=== PATIENT | female | born 1990 | race Caucasian/White ===

== ENCOUNTER → 2019-05-18 16:44 | Outpatient (BNVA) | payer BC, SELFPAY | PROVIDERS: PCP Specialist; Referring Provider Nurse Practitioner; Visit Provider Specialist | DX: S99.912A Unspecified injury of left ankle, initial encounter (principal); X58.XXXA Exposure to other specified factors, initial encounter | CPT/HCPCS: 73610 ==

== ENCOUNTER → 2019-06-08 11:52 | Outpatient (BNVA) | payer BC, SELFPAY | PROVIDERS: PCP Specialist; Visit Provider Specialist | DX: S89.92XA Unspecified injury of left lower leg, initial encounter (principal); X58.XXXA Exposure to other specified factors, initial encounter; M77.32 Calcaneal spur, left foot | CPT/HCPCS: 73610 ==

== ENCOUNTER 2019-11-06 16:50 | Outpatient (CLI) | payer BC, SELFPAY ==
[2019-11-06 17:22] LABS: Basophils % 0.5 %; Eosinophils # 0.1 10^3/uL (0.0-0.8); Eosinophils % 1.3 %; Hematocrit 40.2 % (37.0-47.0); Hemoglobin 13.1 g/dL (11.5-15.3); Lymphocytes # 2.8 10^3/uL (0.8-4.8); Lymphocytes % 37.2 %; Mean Corpuscular HGB Conc 32.6 g/dL (30.0-36.0); Mean Corpuscular Hemoglobin 30.1 pg (28.0-34.0); Mean Corpuscular Volume 92.4 fL (81-99); Mean Platelet Volume 11.2 fL (7.4-10.4); Monocytes # 0.5 10^3/uL (0.2-0.9); Monocytes % 6.5 %; Neutrophils # 3.9 10^3/uL (1.8-7.7); Neutrophils % 53.2 %; Nucleated Red Blood Cells % 0 %; Platelet Count 376 10^3/cmm (130-400); Red Blood Count 4.35 10^6/uL (4.1-5.3); Red Cell Distribution Width 13.1 % (12.1-15.1); White Blood Count 7.4 10^3/uL (4.0-10.0)
[2019-11-06 18:38] LABS: Alanine Aminotransferase 117 U/L (0-33); Albumin Level 4.7 g/dL (3.5-5.2); Alkaline Phosphatase 100 IU/L (35-105); Aspartate Amino Transferase 92 U/L (0-32); Blood Urea Nitrogen 14 mg/dL (6-20); Calcium 9.9 mg/dL (8.5-10.5); Carbon Dioxide 25 mmol/L (22-29); Chloride 99 mmol/L (98-107); Globulin 2.3 g/dL (1.3-4.6); Glomerular Filtration Rate 118.2 mL/min (90-130); Glucose 68 mg/dL (65-115); Osmolality Calculated 277 mOsm/kg (285-295); Sodium 136 mmol/L (136-145); Thyroid Stimulating Hormone 1.74 uIU/mL (0.27-4.20); Total Bilirubin 0.2 mg/dL (0.15-1.2)
== END 2019-11-06 16:51 | disposition home or self-care (01) ==
LOC: LAB 16:53
PROVIDERS: PCP Specialist; Visit Provider Nurse Practitioner Family
DX: F43.21 Adjustment disorder with depressed mood (principal)
CPT/HCPCS: 80053; 84443; 85025

== ENCOUNTER 2020-07-07 10:20 | Outpatient (CLI) | payer BC, SELFPAY ==
--- NOTE | 2020-07-07 10:23 | MM_ITS ---
WS: [id number] DIAGNOSTIC LEFT DIGITAL MAMMOGRAM WITH CAD HISTORY: LEFT BREAST LUMP 9 o'clock, 29-year-old. COMPARISON: None available. Technique: CC, MLO and ML views. Spot compression LEFT CC. Breast composition: There are scattered areas of fibroglandular density. No abnormality noted within the LEFT breast. No soft tissue mass or distortion at 9:00 in the area of clinical concern. LEFT breast ultrasound, limited. Ultrasound is negative for suspicious mass or shadowing in the medial LEFT breast at 9:00. MM/[id number] IMPRESSION: BI-RADS: 1-Negative FOLLOW UP: See Report No additional radiographic follow-up for the LEFT breast abnormality. There is no abnormal imaging finding.
== END 2020-07-07 10:21 | disposition home or self-care (01) ==
LOC: RADSHAW 10:22
PROVIDERS: PCP Nurse Practitioner Family; Visit Provider Nurse Practitioner Family
DX: N63.25 Unspecified lump in the left breast, overlapping quadrants (principal)
CPT/HCPCS: 76642; 77065

== ENCOUNTER → 2020-08-30 14:45 | Outpatient (BNVA) | payer BC, SELFPAY | PROVIDERS: PCP Nurse Practitioner Family; Visit Provider Nurse Practitioner Women's Health | DX: Z01.419 Encounter for gynecological examination (general) (routine) without abnormal findings (principal); Z30.011 Encounter for initial prescription of contraceptive pills; E28.2 Polycystic ovarian syndrome; L73.2 Hidradenitis suppurativa | CPT/HCPCS: 88175 ==

== ENCOUNTER → 2020-09-06 10:36 | Outpatient (BNVA) | payer BC, SELFPAY | PROVIDERS: PCP Nurse Practitioner Family; Visit Provider Nurse Practitioner | DX: M25.561 Pain in right knee (principal) | CPT/HCPCS: 73562 ==

== ENCOUNTER 2021-07-24 12:41 | Emergency (ER) | payer OTHER, SELFPAY ==
[2021-07-24 13:00] VITALS: BP 163/122; PULSE 78; RESP 18; TEMP 37.2; O2SAT 97; BMI 45.3
--- NOTE | 2021-07-24 13:13 | ED_ITS ---
HPI - General Adult General: Chief complaint: General Medical Stated complaint: high bp Time Seen by Provider: 07/24/21 13:07 History of Present Illness: Patient is a 30-year-old female with history of hypertension on metoprolol 50 mg twice daily, diabetes who presents the emergency room for evaluation of elevated blood pressure. Patient tells me that since yesterday, patient has noticed blood pressure elevation. At home, patient had a blood pressure 155/100. Patient also reports 2 weeks of headache with nausea and vomiting today and vertigo-like symptoms x1 day. Patient denies any focal neurological weakness, fever/chills, cough, runny nose, sore throat, patient denies any ear pain, facial droop, slurring of speech, abdominal pain, diarrhea, melena/hematochezia. Patient takes his medicine compliantly. Onset: 1 day of elevated BP, 2 weeks of headache, 1 day N/V Duration:one day Location:home Severity: moderate Associated symptoms: Reports headache(s), nausea and vomiting; Deny chest pain, dyspnea, rash or palpitations Review of Systems Const: Denies: fever(s) or chills Eyes: Denies: change in vision ENMT: Denies: mouth pain Card: Denies: chest pain or palpitations Resp: Denies: dyspnea or non-productive cough GI: Reports: nausea and vomiting; Denies: abdominal pain or diarrhea : Denies: dysuria Musc: Denies: extremity pain Skin/Breast: Denies: rash or new lesions Neuro: Reports: headache(s); Denies: weakness in extremities Psych: Reports: other (Normal mood) Blane/Lymph: Denies: easy bruising PFSH ED PFSH: Medical History Anxiety and depression Fatty liver Fracture of distal fibula Hypertension No pertinent past medical history neghx: dm,thyroid,dvt/pe,migraines. 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 Polycystic ovarian disease Renal calculus, bilateral Surgical History Hx of section (~2013) Emergency due to NRFHR; [place] Family History Mother Hypertension Hyperlipidemia Father Hypertension Hyperlipidemia Grandmother Cancer CAD (coronary artery disease) Heart attack Grandfather Diabetes Denies family history of Clotting disorder Dementia Psychiatric illness Chronic kidney disease (CKD) Suicide Anesthesia complication Bleeding disorder Family history of premature coronary artery disease Lung disease Stroke Social History Smoking and tobacco status: current some day smoker Marital status: Physical Exam Const: COMMON NORMALS: alert HENMT: COMMON NORMALS: atraumatic HEAD & SCALP: atraumatic MOUTH: moist mucous membranes not abnormal Eye: COMMON NORMALS: EOMs intact bilaterally and conjunctivae normal CONJUNCTIVA: Yes conjunctivae normal Neck/C-Spine: COMMON NORMALS: full ROM and supple OTHER: +no mengismus or nuchal rigidity Resp: COMMON NORMALS: normal respiratory effort and clear to auscultation bilaterally AUSCULTATION: clear to auscultation bilaterally Cardio: COMMON NORMALS: regular rate RATE: regular rate GI: COMMON NORMALS: Soft to palpation and non-tender PALPATION: Yes Soft to palpation Extremity: COMMON NORMALS: full ROM Neuro: SENSORIUM/ORIENTATION: Yes alert MOTOR EXAM: No Abnormal motor strength present and Other motor observations present (no focal motor deficits) OTHER: Mental status? Awake, alert, and oriented to self, year, month, location, and situation.? Following simple axial and appendicular commands.? Has appropriate fund of knowledge, comprehension, and insight.? Able to recall and understands pertinent aspects of medical history and current treatment status.? ? Language? Speech is fluent without word-finding difficulties.? Intact naming, expression, hospital receptionist, and repetition.? ? Cranial nerves? 2,3,4,6: PERRL, EOMI with no nystagmus. 5: Intact sensation to light touch, symmetric? 7: Smile symmetrical, no facial droop.? 8: Hearing grossly intact.? 9,10: Normal palate movement.? 11: Normal strength in trapezius bilaterally 12: Tongue protrudes midline.? ? Motor examination? Normal bulk & tone. Strength as follows (R/L): Delts (5/5), Biceps (5/5), Triceps (5/5), Wrist ext (5/5), hip flexors (5/5), plantarflexors (5/5), dorsiflexors (5/5). ? Sensation? Light Touch: Grossly intact and equal in upper and lower extremities bilaterally? Romberg: Negative.? Distal joint position sense intact ? Coordination? [id number]-finger movements intact without dysmetria or past-pointing.? Rapid fingertaps: preserved amplitude without decriment.? No tremor, myoclonus or truncal ataxia.? ? Gait/stance? Steady, normal narrow base gait with appropriate arm swing and turning.? Tandem gait without hesitation or loss of balance. Psych: COMMON NORMALS: speech normal SPEECH: Yes normal speech MOOD & AFFECT: Yes euthymic mood Course Vital Signs: Vital signs: Vital Signs Temperature 98.9 F 07/24/21 13:00 Pulse Rate 63 07/24/21 14:39 Respiratory Rate 18 07/24/21 14:39 Blood Pressure 125/87 07/24/21 14:39 Pulse Oximetry 97 07/24/21 14:39 MDM - General Adult Medical Decision Making 30-year-old female presents emergency room for evaluation 2 weeks headache, nausea and vomiting x1 day in the setting of elevated blood pressure. Patient had a blood pressure 160/120 in the emergency room. Neuro exam is intact. Rest of physical exam within normal limit. Patient received IVF, Reglan and Tylenol with significant improvement headache and nausea. Patient has not had any episodes of vomiting the emergency room. Patient received amlodipine 5 mg improvement in blood pressure. At the present time, do not suspect the patient has subarachnoid hemorrhage or any intracranial bleed given the fact that patient has had a for 2 weeks, headache is not sudden onset, no family history of aneurysm, and patient has significant improvement in headache. I have discussed this findings with patient and informed her that her risks is fairly low for SAH or brain bleed. Upon hearing that, patient is legs to not undergo CT and CT evaluation today. Patient tells me that she will foll ow-up closely with her primary care provider for further evaluation of her symptoms. Patient is given strict precaution for any worsening pelvic, intractable nausea or vomiting, focal neurological complaints or any new or concerning complaints. I have given patient follow up with our catalytic case operator to be seen by our PCP for reassessment of symptoms. Patient aware of a call from our catalytic case operator to schedule for appointment(s) and verbalizes understanding of the importance of following up. Rx amlodipine 5mg for elevated BP Disposition: Discharge. Patient counseled regarding diagnostic impression, treatment plan. Patient given ED strict return precautions to return for continuation, worsening, or development of new symptoms. Instructed to f/u w/ PCP regarding symptoms today. Patient verbalized understanding. Lab Data : 07/24/21 13:35 07/24/21 13:35 Laboratory Results WBC 9.0 10^3/uL (4.0-10.0) 07/24/21 13:35 RBC 4.93 10^6/uL (4.1-5.3) 07/24/21 13:35 Hgb 14.4 g/dL (11.5-15.3) 07/24/21 13:35 Hct 43.0 % (37.0-47.0) 07/24/21 13:35 MCV 87.2 fl (81-99) 07/24/21 13:35 MCH 29.2 pg (28.0-34.0) 07/24/21 13:35 MCHC 33.5 g/dL (30.0-36.0) 07/24/21 13:35 RDW 12.8 % (12.1-15.1) 07/24/21 13:35 Plt Count 417 10^3/cmm (130-400) H 07/24/21 13:35 MPV 10.2 fL (7.4-10.4) 07/24/21 13:35 Neut % (Auto) 54.0 % 07/24/21 13:35 Lymph % (Auto) 39.0 % 07/24/21 13:35 [place] % (Auto) 5.1 % 07/24/21 13:35 Eos % (Auto) 0.7 % 07/24/21 13:35 Baso % (Auto) 0.6 % 07/24/21 13:35 Neut # (Auto) 4.85 10^3/uL (1.8-7.7) 07/24/21 13:35 Lymph # (Auto) 3.5 10^3/uL (0.8-4.8) 07/24/21 13:35 [place] # (Auto) 0.5 10^3/uL (0.2-0.9) 07/24/21 13:35 Eos # (Auto) 0.1 10^3/uL (0.0-0.8) 07/24/21 13:35 Baso # (Auto) 0.1 10^3/uL (0.0-0.1) 07/24/21 13:35 Nucleated RBC % (auto) 0 % 07/24/21 13:35 Nucleated RBCs # 0.0 /100WBC 07/24/21 13:35 Sodium 140 mmol/L (136-145) 07/24/21 13:35 Potassium 4.1 mmol/L (3.5-5.1) 07/24/21 13:35 Chloride 102 mmol/L (98-107) 07/24/21 13:35 Carbon Dioxide 27 mmol/L (22-29) 07/24/21 13:35 Anion Gap 15.1 (5-19) 07/24/21 13:35 BUN 11 mg/dL (6-20) 07/24/21 13:35 Creatinine 0.7 mg/dL (0.5-0.9) 07/24/21 13:35 GFR Calculation 98.3 mL/min (90-130) 07/24/21 13:35 Glucose 122 mg/dL (65-115) H 07/24/21 13:35 Calculated Osmolality 291 mOsm/kg (285-295) 07/24/21 13:35 Calcium 9.7 mg/dL (8.5-10.5) 07/24/21 13:35 Total Bilirubin 0.3 mg/dL (0.15-1.2) 07/24/21 13:35 AST 52 U/L (0-32) H 07/24/21 13:35 ALT 94 U/L (0-33) H 07/24/21 13:35 Alkaline Phosphatase 102 IU/L (35-105) 07/24/21 13:35 Total Protein 8.5 g/dL (6.6-8.7) 07/24/21 13:35 Albumin 5.4 g/dL (3.5-5.2) H 07/24/21 13:35 Globulin 3.1 g/dL (1.3-4.6) 07/24/21 13:35 Lipase 36 U/L (13-60) 07/24/21 13:35 HCG, Qual Negative (Negative) 07/24/21 13:35 Discharge Plan Discharge Patient Disposition: Home Clinical Impression: Headache, Hypertension Condition: Stable Prescriptions: New amlodipine 5 mg tablet 5 mg PO DAILY 14 Days Qty: 14 0RF acetaminophen 500 mg tablet 500 mg PO Q6H PRN (Reason: pain) 5 Days Qty: 20 0RF Reglan 5 mg tablet 5 mg PO DAILY PRN (Reason: nausea and vomiting) 5 Days Qty: 5 0RF No Action metoprolol tartrate 50 mg tablet 50 mg PO BID 0RF duloxetine [Cymbalta] 30 mg capsule,delayed release(DR/EC) 30 mg PO DAILY 0RF norgestimate-ethinyl estradiol [Tri-Sprintec (28)] 0.18/0.215/0.25 mg-35 mcg (28) tablet 1 tab PO DAILY Qty: 84 3RF Child Multivitamins Tablet,Chewable 1 tab PO ONCE 0RF metformin 850 mg tablet 850 mg PO DAILY 0RF amoxicillin-pot clavulanate [Augmentin] 875-125 mg tablet 1 tab PO Q12H 7 Days Qty: 14 0RF ciprofloxacin-dexamethasone [Ciprodex] 0.3-0.1 % drops,suspension 4 drp otic (ear) BID 7 Days Qty: 7.5 0RF meclizine 25 mg tablet 25 mg PO BID PRN (Reason: dizziness) Qty: 20 0RF Discharge Orders: Discharge ED (Routine); Ordered 07/24/21 Ordered By: Waldemar Olvera Referrals: Altagracia Moreno NP [Referring] - Discharge Diet: Advance as tolerated Discharge Activity: Increase activity as tolerated Patient Instructions: Acute Headache (ED) Activity Restrictions/Additional Instructions: Please come back to the emergency room you have any fever chills, worsening headache, focal weakness, nausea/vomiting, inability to perform daily activity, or any new concerning complaints. You need to follow-up with your primary care provider for further adjustment of your blood pressure. Your blood pressure puts you at risk for developing strokes and heart attack. Therefore it is very important for you to follow-up with this number to see if the numbers improve gradually. Because blood pressure adjustment is a gradual process, were not able to change it in 1 visit. Therefore please log your blood pressure and follow-up with your primary care provider in the next 72 hours for further adjustment of your blood pressures. Coding Level of Care Code ED Online Services Manager for [employer] Exam Comprehensive
[2021-07-24] MEDS: acetaminophen 500 mg Tablet PO (13:35)
[2021-07-24] MEDS: metoclopramide 5 mg/mL SDV 2 mL 10 MG IVP (13:35)
[2021-07-24] MEDS: sodium chloride 0.9% 1,000 ML 999 ML IV (13:35)
[2021-07-24] MEDS: ondansetron 2 mg/ML SDV 2 mL 4 MG IVP (13:36)
[2021-07-24 13:52] LABS: Basophils # 0.1 10^3/uL (0.0-0.1); Basophils % 0.6 %; Eosinophils # 0.1 10^3/uL (0.0-0.8); Eosinophils % 0.7 %; Hemoglobin 14.4 g/dL (11.5-15.3); Lymphocytes # 3.5 10^3/uL (0.8-4.8); Mean Corpuscular HGB Conc 33.5 g/dL (30.0-36.0); Mean Corpuscular Hemoglobin 29.2 pg (28.0-34.0); Mean Corpuscular Volume 87.2 fl (81-99); Mean Platelet Volume 10.2 fL (7.4-10.4); Monocytes # 0.5 10^3/uL (0.2-0.9); Monocytes % 5.1 %; Neutrophils # 4.85 10^3/uL (1.8-7.7); Nucleated Red Blood Cells % 0 %; Platelet Count 417 10^3/cmm (130-400); Red Blood Count 4.93 10^6/uL (4.1-5.3); Red Cell Distribution Width 12.8 % (12.1-15.1)
[2021-07-24 14:05] LABS: HCG, Serum Qual Negative (Negative)
[2021-07-24 14:11] LABS: Alanine Aminotransferase 94 U/L (0-33); Albumin Level 5.4 g/dL (3.5-5.2); Alkaline Phosphatase 102 IU/L (35-105); Anion Gap 15.1 (5-19); Aspartate Amino Transferase 52 U/L (0-32); Blood Urea Nitrogen 11 mg/dL (6-20); Calcium 9.7 mg/dL (8.5-10.5); Carbon Dioxide 27 mmol/L (22-29); Chloride 102 mmol/L (98-107); Globulin 3.1 g/dL (1.3-4.6); Glomerular Filtration Rate 98.3 mL/min (90-130); Glucose 122 mg/dL (65-115); Lipase 36 U/L (13-60); Osmolality Calculated 291 mOsm/kg (285-295); Potassium 4.1 mmol/L (3.5-5.1); Sodium 140 mmol/L (136-145); Total Bilirubin 0.3 mg/dL (0.15-1.2); Total Protein 8.5 g/dL (6.6-8.7)
[2021-07-24] MEDS: amlodipine 5 mg Tablet PO (14:11)
[2021-07-24 14:12] VITALS: BP 142/69; PULSE 76; RESP 18; O2SAT 98
[2021-07-24 14:39] VITALS: BP 125/87; PULSE 63; RESP 18; O2SAT 97
--- NOTE | 2021-08-02 12:27 | DCPLANNER ---
Addendum entered by Santa Clark 08/02/21 12:34: Patient called case mgr back and stated that she has already seen her primary care physician. Original Note: communication and outreach manager had message to speak with patient about getting established with a primary care physician. communication and outreach manager called phone number [phone], unable to speak with patient at this time. A voicemail was left for patient to return patient case coordinator phone call.
== END 2021-07-24 14:40 | disposition home or self-care (01) ==
PROVIDERS: Emergency Provider Emergency Medicine
DX: I10 Essential (primary) hypertension (principal); R51.9 Headache, unspecified; Z79.84 Long term (current) use of oral hypoglycemic drugs; F17.210 Nicotine dependence, cigarettes, uncomplicated
CPT/HCPCS: 80053; 83690; 84703; 85025; 96374; 96375; 99283; J2405; J2765; J7030

== ENCOUNTER → 2021-11-10 10:53 | Outpatient (BNVA) | payer OTHER, SELFPAY | PROVIDERS: Visit Provider Family Medicine Adult Medicine | DX: M25.532 Pain in left wrist (principal) | CPT/HCPCS: 73110 ==

== ENCOUNTER 2022-01-10 20:24 | Emergency (ER) | payer OTHER, SELFPAY ==
[2022-01-10 21:03] VITALS: BP 163/118; PULSE 125; RESP 18; TEMP 37.4; O2SAT 99; BMI 48.8
--- NOTE | 2022-01-10 21:21 | W.ED.FEVER ---
HPI - Fever General: Chief Complaint: Fever Stated Complaint: left ear and throat pain, sob Time Seen by Provider: 01/10/22 21:17 History of Present Illness: 31-year-old female comes in today with complaints of left ear pain. Patient has been ill for about 3 days with sore throat and upper respiratory symptoms. Patient was tested for strep test at the start of the symptoms and was negative. Patient tested for COVID yesterday and was negative. Patient came in today mainly due to her ear pain. Patient appears nontoxic. Patient appears in mild to moderate pain. Review of Systems Const: Denies: fever(s) ENMT: Reports: ear or mastoid pain PFS ED PFSH: Medical History (Updated 01/10/22 @ 21:31 by OLIVA Dawkins) Anxiety and depression Fatty liver Fracture of distal fibula Hypertension Left wrist sprain No pertinent past medical history neghx: dm,thyroid,dvt/pe,migraines. 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 Polycystic ovarian disease Renal calculus, bilateral Surgical History Hx of section (~2013) Emergency due to NRFHR; [place] Family History Mother Hypertension Hyperlipidemia Father Hypertension Hyperlipidemia Grandmother Breast cancer Paternal--dx age unknown Heart disease Paternal Grandfather Diabetes Maternal Sister Cervical cancer dx age 25 Brother Thyroid disease Denies family history of Colon cancer Ovarian cancer Uterine cancer Stroke Social History Smoking and tobacco status: never smoked Female Reproductive History: Date of last menstrual period: 12/11/21 Physical Exam Const: COMMON NORMALS: alert HENMT: COMMON NORMALS: normocephalic HEAD & SCALP: normocephalic TYMPANIC MEMBRANE: TM abnormal TM laterality: bilateral bulging THROAT: posterior oropharynx abnormal erythema Neck/C-Spine: COMMON NORMALS: full ROM Resp: COMMON NORMALS: normal respiratory effort and clear to auscultation bilaterally AUSCULTATION: clear to auscultation bilaterally Cardio: COMMON NORMALS: regular rate and regular rhythm RATE: regular rate RHYTHM: regular rhythm GI: COMMON NORMALS: Soft to palpation PALPATION: Yes Soft to palpation Extremity: COMMON NORMALS: normal to inspection Neuro: SENSORIUM/ORIENTATION: Yes alert Skin: COMMON NORMALS: no rashes or lesions noted GENERAL SKIN EXAM: no rashes or lesions noted Course Vital Signs: Vital signs: Vital Signs Temperature 99.4 F 01/10/22 21:03 Pulse Rate 125 H 01/10/22 21:03 Respiratory Rate 18 01/10/22 21:03 Blood Pressure 163/118 01/10/22 21:03 Pulse Oximetry 99 01/10/22 21:03 MDM - Fever Medical Decision Making 31-year-old female comes in today with complaints of left side ear pain and facial pain. Patient also reports occasional fever. Patient has been on azithromycin for 3 days. Patient has tested negative for COVID and strep. On exam patient is some erythema to the posterior pharynx. Some sinus tenderness of the left maxillary sinus. Bilateral TMs are slightly bulging. Respirations are even lungs are clear to auscultation. Patient appears nontoxic. Vital signs are normal. Differential diagnosis includes but not limited to rhinosinusitis, otitis media, otalgia, upper respiratory infection. No signs of serious illness is noted. Patient will be treated for her pain with 1 hydrocodone, we will treat for rhinosinusitis with a dose of steroid and change antibiotics from azithromycin to Augmentin. Patient reported understanding of care plan need for follow-up or return to the ER. Discharge Plan Discharge Patient Disposition: Home Clinical Impression: Otalgia of left ear, Acute rhinosinusitis Condition: Stable Prescriptions: New amoxicillin-pot clavulanate 875-125 mg tablet 1 tab PO BID Qty: 14 0RF hydrocodone-acetaminophen 5-325 mg tablet 1 tab PO Q6H PRN (Reason: pain (scale score 7-10)) Qty: 10 0RF prednisone 20 mg tablet 20 mg PO BID 3 Days Qty: 6 0RF No Action duloxetine [Cymbalta] 30 mg capsule,delayed release(DR/EC) 60 mg PO DAILY metoprolol tartrate 50 mg tablet 12.5 mg PO BID amlodipine 5 mg tablet 5 mg PO DAILY buspirone 5 mg tablet 5 mg PO DAILY Child Multivitamins Tablet,Chewable 1 tab PO ONCE metformin 850 mg tablet 750 mg PO DAILY Discharge Orders: Discharge ED (Routine); Ordered 01/10/22 Ordered By: Owen Penaloza Referrals: Cruz,Mee, DIE POLISHER [Primary Care Provider] - Discharge Diet: Usual diet Discharge Activity: Increase activity as tolerated Patient Instructions: Earache (ED) Activity Restrictions/Additional Instructions: Take Augmentin 1 tablet twice a day for 7 days. Use prednisone 20 mg twice a day for 3 days. The Augmentin is the antibiotic and will fight any bacterial infection and works well for sinusitis. Prednisone will help with inflammation and pain in the sinuses and ears. Drink plenty of water with this medication. Use acetaminophen and ibuprofen to control pain. Use hydrocodone for severe pain. Follow-up with primary care for further instructions. I would expect an further improvement within 2 to 3 days. Stand Alone Forms: Work/School Release Coding Level of Care Code ED Color Checker for Domingo Sepulveda
[2022-01-10] MEDS: HYDROcodone-acetaminophen 10-325 mg Tablet 1 TAB PO (22:26)
[2022-01-10] MEDS: dexamethasone 10 mg/mL INJ IM (22:26)
[2022-01-10] MEDS: clindamycin 150 mg Capsule 300 MG PO (22:33)
[2022-01-10 22:34] VITALS: BP 155/79; PULSE 98; RESP 18; TEMP 37.4; O2SAT 99
--- NOTE | 2022-01-11 13:01 | DCPLANNER ---
Addendum entered by Santa Clark 02/01/22 07:36: Patient had follow up appointment scheduled for 01.30.22 with ENT - patient did attend appointment Addendum entered by Santa Clark 01/12/22 11:31: Patient has a follow up appointment scheduled for Sunday, January 30, 2022 at 4:[address] Gracia, ENT. Clinic will call patient with appointment information. Original Note: welfare project manager had message to schedule a follow up appointment for patient with ENT. welfare project manager sent patients information to the front office staff at ENT. Patients information will be printed and reviewed. Clinic will call patient with appointment information.
== END 2022-01-10 22:37 | disposition home or self-care (01) ==
PROVIDERS: Emergency Provider Nurse Practitioner Family; PCP Nurse Practitioner Family
DX: H92.02 Otalgia, left ear (principal); J01.90 Acute sinusitis, unspecified; Z79.84 Long term (current) use of oral hypoglycemic drugs; I10 Essential (primary) hypertension
CPT/HCPCS: 99284; J1100

== ENCOUNTER → 2022-01-19 16:33 | Outpatient (BNVA) | payer OTHER, SELFPAY | PROVIDERS: PCP Nurse Practitioner Family; Visit Provider Emergency Medicine | DX: S93.402A Sprain of unspecified ligament of left ankle, initial encounter (principal); X50.9XXA Other and unspecified overexertion or strenuous movements or postures, initial encounter; M77.32 Calcaneal spur, left foot | CPT/HCPCS: 73610 ==

== ENCOUNTER → 2022-09-04 15:58 | Outpatient (BNVA) | payer OTHER, SELFPAY | PROVIDERS: PCP Nurse Practitioner Family; Visit Provider Nurse Practitioner Women's Health | DX: Z01.419 Encounter for gynecological examination (general) (routine) without abnormal findings (principal); L73.2 Hidradenitis suppurativa; E28.2 Polycystic ovarian syndrome | CPT/HCPCS: 80048 ==

== ENCOUNTER → 2022-09-26 10:20 | Outpatient (BNVA) | payer OTHER, SELFPAY | PROVIDERS: PCP Nurse Practitioner Family; Visit Provider Nurse Practitioner Women's Health | DX: N97.9 Female infertility, unspecified (principal); N84.0 Polyp of corpus uteri | CPT/HCPCS: 76830 ==

== ENCOUNTER 2022-12-11 12:18 | Emergency (ER) | payer OTHER, SELFPAY ==
[2022-12-11 13:03] VITALS: BP 130/86; PULSE 101; RESP 14; TEMP 37.2; O2SAT 97; BMI 45.8
[2022-12-11 14:51] LABS: Basophils % 0.2 %; Hematocrit 41.1 % (37.0-47.0); Hemoglobin 13.2 g/dL (11.5-15.3); Lymphocytes # 0.8 10^3/uL (0.8-4.8); Lymphocytes % 9.8 %; Mean Corpuscular HGB Conc 32.1 g/dL (30.0-36.0); Mean Corpuscular Hemoglobin 29.5 pg (28.0-34.0); Mean Corpuscular Volume 91.7 fl (81-99); Mean Platelet Volume 10.2 fL (7.4-10.4); Monocytes % 0.5 %; Neutrophils # 7.54 10^3/uL (1.8-7.7); Neutrophils % 89.1 %; Nucleated Red Blood Cells % 0 %; Platelet Count 299 10^3/cmm (130-400); Red Blood Count 4.48 10^6/uL (4.1-5.3); Red Cell Distribution Width 12.1 % (12.1-15.1); White Blood Count 8.5 10^3/uL (4.0-10.0)
[2022-12-11 15:03] LABS: Erythrocyte Sedimentation Rate 11 mm/hr (0-15)
[2022-12-11 15:12] LABS: Alanine Aminotransferase 28 U/L (0-33); Alkaline Phosphatase 89 U/L (35-105); Anion Gap 18.3 (5-19); Aspartate Amino Transferase 21 U/L (0-32); Blood Urea Nitrogen 11 mg/dL (6-20); C Reactive Protein 16.6 mg/L (0.0-4.9); Calcium 9.3 mg/dL (8.5-10.5); Carbon Dioxide 16 mmol/L (22-29); Chloride 102 mmol/L (98-107); Globulin 3.3 g/dL (1.3-4.6); Glomerular Filtration Rate 83.1 mL/min (90-130); Glucose 203 mg/dL (65-115); Osmolality Calculated 279 mOsm/kg (285-295); Potassium 4.3 mmol/L (3.5-5.1); Sodium 132 mmol/L (136-145); Total Bilirubin 0.2 mg/dL (0.15-1.2); Total Protein 7.3 g/dL (6.6-8.7)
[2022-12-11 15:48] LABS: Lactate (Lactic Acid level) 3.7 mmol/L (0.5-2.2)
--- NOTE | 2022-12-11 16:19 | W.ED.ANIMALB ---
HPI - Animal Bite General: Chief Complaint: Animal Bite Stated Complaint: sent by uc/rt arm inj Time Seen by Provider: 12/11/22 16:10 Source: patient Mode of arrival: ambulatory History of Present Illness: 32-year-old female who presents emergency room with cellulitis on the dorsum of the right forearm. She was seen 3 days ago and had an incision and drainage of an abscess. There was some packing placed and later removed. She has not had any fever sweats chills she has been placed on Bactrim 1 tablet twice daily. Reviewing the chart there is no culture from the incision and drainage previously. She is unsure of where this came from. Onset (ago): day(s) Location - Extremities: Right: forearm Associated symptoms: Deny bleeding, chills, cough, diaphoresis, erythema, fever(s), headache(s), numbness, rash, short of breath, weakness or wound drainage Related Data: Patient tetanus UTD: Yes Review of Systems Const: Denies: fever(s), chills or diaphoresis Neuro: Denies: headache(s) PFSH ED PFSH: Medical History Anxiety and depression Fatty liver Fracture of distal fibula Hypertension Left wrist sprain No pertinent past medical history neghx: dm,thyroid,dvt/pe,migraines. 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 Polycystic ovarian disease Renal calculus, bilateral Surgical History Hx of section (~2013) Emergency due to NRFHR; [place] Family History Mother Hypertension Hyperlipidemia Father Hypertension Hyperlipidemia Grandmother Breast cancer Paternal--dx age unknown Heart disease Paternal Grandfather Diabetes Maternal Sister Cervical cancer dx age 25 Brother Thyroid disease Denies family history of Colon cancer Ovarian cancer Uterine cancer Stroke Social History Smoking and tobacco status: never smoked Physical Exam Skin: GENERAL SKIN EXAM: no erythema Course Vital Signs: Vital signs: Vital Signs Temperature 99.0 F 12/11/22 13:03 Pulse Rate 101 H 12/11/22 13:03 Respiratory Rate 14 12/11/22 13:03 Blood Pressure 130/86 12/11/22 13:03 Pulse Oximetry 97 12/11/22 13:03 Oxygen Delivery Me thod Room Air 12/11/22 13:03 MDM - Animal Bite Medical Decision Making No fluctuant area present on exam. I do not think incising and draining at this point will be helpful we will increase her Bactrim to 2 tablets twice daily. Second prescription given. Follow-up with primary care. Medical Records I reviewed the patient's medical records. Lab Data I reviewed the patient's lab results. 12/11/22 14:35 12/11/22 14:35 Laboratory Results WBC 8.5 10^3/uL (4.0-10.0) 12/11/22 14:35 RBC 4.48 10^6/uL (4.1-5.3) 12/11/22 14:35 Hgb 13.2 g/dL (11.5-15.3) 12/11/22 14:35 Hct 41.1 % (37.0-47.0) 12/11/22 14:35 MCV 91.7 fl (81-99) 12/11/22 14:35 MCH 29.5 pg (28.0-34.0) 12/11/22 14:35 MCHC 32.1 g/dL (30.0-36.0) 12/11/22 14:35 RDW 12.1 % (12.1-15.1) 12/11/22 14:35 Plt Count 299 10^3/cmm (130-400) 12/11/22 14:35 MPV 10.2 fL (7.4-10.4) 12/11/22 14:35 Neut % (Auto) 89.1 % 12/11/22 14:35 Lymph % (Auto) 9.8 % 12/11/22 14:35 [place] % (Auto) 0.5 % 12/11/22 14:35 Eos % (Auto) 0.0 % 12/11/22 14:35 Baso % (Auto) 0.2 % 12/11/22 14:35 Neut # (Auto) 7.54 10^3/uL (1.8-7.7) 12/11/22 14:35 Lymph # (Auto) 0.8 10^3/uL (0.8-4.8) 12/11/22 14:35 [place] # (Auto) 0.0 10^3/uL (0.2-0.9) L 12/11/22 14:35 Eos # (Auto) 0.0 10^3/uL (0.0-0.8) 12/11/22 14:35 Baso # (Auto) 0.0 10^3/uL (0.0-0.1) 12/11/22 14:35 Nucleated RBC % (auto) 0 % 12/11/22 14:35 Nucleated RBCs # 0.0 /100WBC 12/11/22 14:35 ESR 11 mm/hr (0-15) 12/11/22 14:35 Sodium 132 mmol/L (136-145) L 12/11/22 14:35 Potassium 4.3 mmol/L (3.5-5.1) 12/11/22 14:35 Chloride 102 mmol/L (98-107) 12/11/22 14:35 Carbon Dioxide 16 mmol/L (22-29) L 12/11/22 14:35 Anion Gap 18.3 (5-19) 12/11/22 14:35 BUN 11 mg/dL (6-20) 12/11/22 14:35 Creatinine 0.8 mg/dL (0.5-0.9) 12/11/22 14:35 GFR Calculation 83.1 mL/min (90-130) L 12/11/22 14:35 Glucose 203 mg/dL (65-115) H 12/11/22 14:35 Calculated Osmolality 279 mOsm/kg (285-295) L 12/11/22 14:35 Lactic Acid Cancelled 12/11/22 14:35 Lactate 3.7 mmol/L (0.5-2.2) H 12/11/22 15:10 Calcium 9.3 mg/dL (8.5-10.5) 12/11/22 14:35 Total Bilirubin 0.2 mg/dL (0.15-1.2) 12/11/22 14:35 AST 21 U/L (0-32) 12/11/22 14:35 ALT 28 U/L (0-33) 12/11/22 14:35 Alkaline Phosphatase 89 U/L (35-105) 12/11/22 14:35 C-Reactive Protein 16.6 mg/L (0.0-4.9) H 12/11/22 14:35 Total Protein 7.3 g/dL (6.6-8.7) 12/11/22 14:35 Albumin 4.0 g/dL (3.5-5.2) 12/11/22 14:35 Globulin 3.3 g/dL (1.3-4.6) 12/11/22 14:35 Discharge Plan Discharge Patient Disposition: Home Clinical Impression: Cellulitis Condition: Stable Prescriptions: New sulfamethoxazole-trimethoprim [Bactrim DS] 800-160 mg tablet 2 tab PO BID 7 Days Qty: 28 0RF No Action duloxetine [Cymbalta] 30 mg capsule,delayed release(DR/EC) 60 mg PO DAILY metoprolol tartrate 50 mg tablet 12.5 mg PO BID amlodipine 5 mg tablet 5 mg PO DAILY buspirone 5 mg tablet 5 mg PO DAILY Child Multivitamins Tablet,Chewable 1 tab PO ONCE metformin 850 mg tablet 750 mg PO DAILY mecobalamin (vitamin B12) 1,000 mcg lozenge 1,000 mcg PO DAILY Rx Instructions: allow to dissolve in mouth OR may chew lightly before swallowing norgestimate-ethinyl estradiol [Tri-Sprintec (28)] 0.18/0.215/0.25 mg-35 mcg (28) tablet 1 tab PO DAILY Qty: 84 3RF spironolactone 100 mg tablet 200 mg PO DAILY Qty: 60 6RF montelukast 10 mg tablet 10 mg PO DAILY sulfamethoxazole-trimethoprim [Bactrim DS] 800-160 mg tablet 1 tab PO BID 10 Days Qty: 20 0RF ibuprofen 600 mg tablet 600 mg PO Q8H PRN (Reason: pain) Qty: 60 0RF Discharge Orders: Discharge ED (Routine); Ordered 12/11/22 Ordered By: Yves Santoyo Referrals: Mee Cruz FNP [Primary Care Provider] - Discharge Diet: Usual diet Discharge Activity: Resume usual activity Patient Instructions: Opioid Safety, Pain Management Activity Restrictions/Additional Instructions: You are seen today for cellulitis on the forearm. Recommend that you increase your Bactrim to 2 tablets twice daily. Apply moist heat to the affected area twice a day for 15 to 20 minutes at a time. Follow-up with your primary care doctor. Coding Level of Care Code ED Cross Tie Maker for Domingo Sepulveda
[2022-12-11 17:00] LABS: Reflex Lactate Order REFLEX LACTIC ORDERD
== END 2022-12-11 17:37 | disposition home or self-care (01) ==
PROVIDERS: Physician Assistant; Emergency Provider Family Medicine; PCP Nurse Practitioner Family
DX: L03.113 Cellulitis of right upper limb (principal); Z79.84 Long term (current) use of oral hypoglycemic drugs; I10 Essential (primary) hypertension
CPT/HCPCS: 36415; 80053; 83605; 85025; 85651; 86140; 99283

== ENCOUNTER 2023-01-22 02:03 | Emergency (ER) | payer OTHER, SELFPAY ==
[2023-01-22 02:14] VITALS: BP 168/107; PULSE 132; RESP 22; TEMP 37.8; O2SAT 97; BMI 45.8
[2023-01-22 02:16] VITALS: BP 168/107; PULSE 118; RESP 18; O2SAT 99
--- NOTE | 2023-01-22 02:23 | ED_ITS ---
HPI - General Adult General: Chief complaint: General Medical Stated complaint: migraine Time Seen by Provider: 01/22/23 02:10 History of Present Illness: Patient presents to the ER with complaints of headache nausea vomiting. Patient states this is her normal headache but just been a lot more intense. This headache started on the left side and wraparound to the posterior occipital region and patient has neck tension and mild neck pain. Patient has full range of motion. Patient has had some nausea vomiting with this pain. Patient is tried [id number] Tylenol Motrin with no relief. Patient also notes her heart racing. Review of Systems General: Reports: 10 or more systems reviewed and unremarkable except in HPI and below PFSH ED PFSH: Medical History Anxiety and depression Fatty liver Fracture of distal fibula Hypertension Left wrist sprain No pertinent past medical history neghx: dm,thyroid,dvt/pe,migraines. 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 [employer] Polycystic ovarian disease Renal calculus, bilateral Surgical History Hx of section (~2013) Emergency due to NRFHR; [place] Family History Mother Hypertension Hyperlipidemia Father Hypertension Hyperlipidemia Grandmother Breast cancer Paternal--dx age unknown Heart disease Paternal Grandfather Diabetes Maternal Sister Cervical cancer dx age 25 Brother Thyroid disease Denies family history of Colon cancer Ovarian cancer Uterine cancer Stroke Social History Smoking and tobacco status: never smoked Female Reproductive History: Date of last menstrual period: 01/01/23 Physical Exam Const: COMMON NORMALS: no acute distress, average body habitus, patient oriented x3, no limitations, healthy appearing, alert and well nourished HENMT: COMMON NORMALS: normocephalic, atraumatic, hearing grossly normal bilaterally, external ears normal, Normal external nose present and Normal nasal mucous membranes and turbinates present HEAD & SCALP: normocephalic and atraumatic NOSE: Normal external nose present and Normal nasal mucous me mbranes and turbinates present EXTERNAL EAR: Yes external ears normal Eye: COMMON NORMALS: Equal, round and reactive pupils present, EOMs intact bilaterally, conjunctivae normal and no scleral icterus CONJUNCTIVA: Yes conjunctivae normal PUPIL: Yes Equal, round and reactive pupils present Neck/C-Spine: COMMON NORMALS: full ROM, no lymphadenopathy, supple, no meningeal signs, no JVD and Thyroid normal THYROID: Thyroid normal Chest: COMMONS NORMALS: normal inspection of the chest and normal palpation of entire chest wall Resp: COMMON NORMALS: normal respiratory effort, No retractions, No use of accessory muscles and clear to auscultation bilaterally AUSCULTATION: clear to auscultation bilaterally Cardio: COMMON NORMALS: no JVD, regular rate, regular rhythm, S1 normal heart sound present, S2 normal heart sound present, No gallops present (Cardio), No clicks present (Cardio), No murmurs present (Cardio) and No rub (Cardio) RATE: regular rate RHYTHM: regular rhythm HEART SOUNDS: S1 normal heart sound present and S2 normal heart sound present GI: COMMON NORMALS: Normal to inspection, nondistended, normoactive bowel sounds present, Soft to palpation, non-tender and No hepatosplenomegaly present PALPATION: Yes Soft to palpation and Yes No hepatosplenomegaly present : COMMON NORMALS: Yes no CVA tenderness BLADDER/KIDNEY EXAM: Yes no CVA tenderness Back/Pelvis: COMMON NORMALS: no CVA tenderness Neuro: COMMON NORMALS: patient oriented x3 SENSORIUM/ORIENTATION: Yes alert MENINGEAL SIGNS: Yes no meningeal signs Course Vital Signs: Vital signs: Vital Signs Temperature 100.1 F H 01/22/23 02:14 Pulse Rate 112 H 01/22/23 04:38 Respiratory Rate 14 01/22/23 04:38 Blood Pressure 117/78 01/22/23 04:38 Pulse Oximetry 97 01/22/23 04:38 Oxygen Delivery Me thod Room Air 01/22/23 04:38 MDM - General Adult Medical Decision Making Patient presents to the ER with complaints of migraine with nausea. Elevated heart rate. Patient was given 1 L normal saline, 50 mg of Benadryl, 10 of Reglan, 30 of Toradol, 1000 mg of Tylenol, 10 mg of dexamethasone, patient says her pain reduced from a 10 to a 4 and her fever reduced from 100.1-97.9. Patient will be discharged home to follow-up with her primary care practitioner within the next 7 days. If patient's fever and/or headache returns as uncontrollable with [id number] Tylenol and Motrin she is to come back to the ER for further evaluation. Differential Diagnosis Headache, tachycardia, migraine, nausea vomiting, fever Medical Records I reviewed the patient's medical records. Lab Data I reviewed the patient's lab results. 01/22/23 02:27 01/22/23 02:27 Laboratory Results WBC 13.46 10^3/uL (3.29-11.43) H 01/22/23 02:27 RBC 4.02 10^6/uL (3.85-5.65) 01/22/23 02:27 Hgb 12.10 g/dL (11.27-16.99) 01/22/23 02: Hct 34.8 % (36-47) L 01/22/23 02: MCV 86.6 fl (85-98) 01/22/23 02: MCH 30.1 pg (27-33) 01/22/23 02: MCHC 34.8 g/dL (30-55) 01/22/23 02: RDW 12.4 % (12.1-15.1) 01/22/23 02:27 Plt Count 265 10^3/cmm (157-399) 01/22/23 02:27 MPV 10.5 fL (7.4-10.4) H 01/22/23 02:27 Neut % (Auto) 82.0 % 01/22/23 02: Lymph % (Auto) 13.2 % 01/22/23 02:27 [place] % (Auto) 4.2 % 01/22/23 02:27 Eos % (Auto) 0.1 % 01/22/23 02:27 Baso % (Auto) 0.1 % 01/22/23 02:27 Neut # (Auto) 11.04 10^3/uL (1.8-7.7) H 01/22/23 02:27 Lymph # (Auto) 1.8 10^3/uL (0.8-4.8) 01/22/23 02:27 [place] # (Auto) 0.6 10^3/uL (0.2-0.9) 01/22/23 02:27 Eos # (Auto) 0.0 10^3/uL (0.0-0.8) 01/22/23 02:27 Baso # (Auto) 0.0 10^3/uL (0.0-0.1) 01/22/23 02:27 Nucleated RBC % (auto) 0 % 01/22/23 02:27 Nucleated RBCs # 0.0 /100WBC 01/22/23 02:27 Sodium 135 mmol/L (136-145) L 01/22/23 02:27 Potassium 4.0 mmol/L (3.5-5.1) 01/22/23 02:27 Chloride 101 mmol/L (98-107) 01/22/23 02:27 Carbon Dioxide 22 mmol/L (22-29) 01/22/23 02:27 Anion Gap 16.0 (5-19) 01/22/23 02:27 BUN 9 mg/dL (6-20) 01/22/23 02:27 Creatinine 0.6 mg/dL (0.5-0.9) 01/22/23 02:27 GFR Calculation 115.9 mL/min (90-130) 01/22/23 02:27 Glucose 124 mg/dL (65-115) H 01/22/23 02:27 Calculated Osmolality 280 mOsm/kg (285-295) L 01/22/23 02:27 Calcium 9.7 mg/dL (8.5-10.5) 01/22/23 02:27 Total Bilirubin 0.2 mg/dL (0.15-1.2) 01/22/23 02:27 AST 32 U/L (0-32) 01/22/23 02:27 ALT 53 U/L (0-33) H 01/22/23 02:27 Alkaline Phosphatase 77 U/L (35-105) 01/22/23 02:27 Total Protein 7.5 g/dL (6.6-8.7) 01/22/23 02:27 Albumin 4.8 g/dL (3.5-5.2) 01/22/23 02:27 Globulin 2.7 g/dL (1.3-4.6) 01/22/23 02:27 Urine Color Light yellow (Yellow) 01/22/23 04:02 Urine Appearance Clear (CLEAR) 01/22/23 04:02 Urine pH 8 (5-7) H 01/22/23 04:02 Ur Specific Mart 1.010 (1.005-1.030) 01/22/23 04:02 Urine Protein Neg (Negative) 01/22/23 04:02 Urine Glucose (UA) Norm (Normal) 01/22/23 04:02 Urine Ketones Negative (Negative) 01/22/23 04:02 Urine Blood Neg (Negative) 01/22/23 04:02 Urine Nitrate Negative (Negative) 01/22/23 04:02 Urine Bilirubin Neg (Negative) 01/22/23 04:02 Prot Sulfosalicylic Acd Negative (Negative) 01/22/23 04:02 Urine Urobilinogen Neg mg/dL (Negative) 01/22/23 04:02 Ur Leukocyte Esterase Negative (Negative) 01/22/23 04:02 SARS-CoV-2 Ag (Rapid) negative (Negative) 01/22/23 03:21 EKG Data EKG 1: I personally reviewed and interpreted this EKG as follows: EKG interpretation date: 01/22/23 EKG interpretation time: 03:07 Prior EKG tracings: not available for review Interpretation: EKG showed ventricular rate 109 bpm, [place] interval 181, QRS duration 103, sinus tachycardia, nonspecific T wave abnormality, Discharge Plan Discharge Patient Disposition: Home Clinical Impression: Headache, migraine Qualifiers: Migraine type: unspecified Status migrainosus presence: without status migrainosus Intractability: not intractable Qualified Code(s): G43.909 - Migraine, unspecified, not intractable, without status migrainosus Condition: Stable Prescriptions: No Action duloxetine [Cymbalta] 30 mg capsule,delayed release(DR/EC) 60 mg PO DAILY metoprolol tartrate 50 mg tablet 12.5 mg PO BID amlodipine 5 mg tablet 5 mg PO DAILY buspirone 5 mg tablet 5 mg PO DAILY Child Multivitamins Tablet,Chewable 1 tab PO ONCE metformin 850 mg tablet 750 mg PO DAILY mecobalamin (vitamin B12) 1,000 mcg lozenge 1,000 mcg PO DAILY Rx Instructions: allow to dissolve in mouth OR may chew lightly before swallowing spironolactone 100 mg tablet 200 mg PO DAILY Qty: 60 6RF montelukast 10 mg tablet 10 mg PO DAILY sulfamethoxazole-trimethoprim [Bactrim DS] 800-160 mg tablet 1 tab PO BID 10 Days Qty: 20 0RF ibuprofen 600 mg tablet 600 mg PO Q8H PRN (Reason: pain) Qty: 60 0RF norgestimate-ethinyl estradiol [Tri-Sprintec (28)] 0.18/0.215/0.25 mg-35 mcg ( 28) tablet 1 tab PO DAILY Qty: 84 3RF Discharge Orders: Discharge ED (Routine); Ordered 01/22/23 Ordered By: Quentin Pace Referrals: Mee Cruz FNP [Primary Care Provider] - 1 week Patient Instructions: Migraine Headache (ED) Activity Restrictions/Additional Instructions: You have been given multiple doses of medicine in the ER, most of these will make you drowsy, please go home and go to bed as sleep will help decrease her headache further. If your headache returns or is intolerable with over-the- counter Tylenol and/or ibuprofen please return to the ER for further evaluation and testing. Otherwise please follow-up with your family practice physician within the next week for further evaluation and treatment. Coding Level of Care Code ED Command And Control Officer for Domingo Sepulveda
[2023-01-22 02:31] LABS: Basophils % 0.1 %; Eosinophils % 0.1 %; Hematocrit 34.8 % (36-47); Lymphocytes # 1.8 10^3/uL (0.8-4.8); Lymphocytes % 13.2 %; Mean Corpuscular HGB Conc 34.8 g/dL (30-55); Mean Corpuscular Hemoglobin 30.1 pg (27-33); Mean Corpuscular Volume 86.6 fl (85-98); Mean Platelet Volume 10.5 fL (7.4-10.4); Monocytes # 0.6 10^3/uL (0.2-0.9); Monocytes % 4.2 %; Neutrophils # 11.04 10^3/uL (1.8-7.7); Nucleated Red Blood Cells % 0 %; Platelet Count 265 10^3/cmm (157-399); Red Blood Count 4.02 10^6/uL (3.85-5.65); Red Cell Distribution Width 12.4 % (12.1-15.1); White Blood Count 13.46 10^3/uL (3.29-11.43)
[2023-01-22] MEDS: sodium chloride 0.9% 1,000 ML 999 ML IV (02:32)
[2023-01-22] MEDS: metoclopramide 5 mg/mL SDV 2 mL 10 MG IVP (02:33)
[2023-01-22] MEDS: ketorolac 30 mg/mL INJ IVP (02:36)
[2023-01-22] MEDS: diphenhydrAMINE 50 mg/mL SDV 1mL IVP (02:37)
[2023-01-22 02:49] LABS: Alanine Aminotransferase 53 U/L (0-33); Albumin Level 4.8 g/dL (3.5-5.2); Alkaline Phosphatase 77 U/L (35-105); Blood Urea Nitrogen 9 mg/dL (6-20); Calcium 9.7 mg/dL (8.5-10.5); Carbon Dioxide 22 mmol/L (22-29); Chloride 101 mmol/L (98-107); Creatinine Clr Calc Pharmacy 148.6174; Globulin 2.7 g/dL (1.3-4.6); Glomerular Filtration Rate 115.9 mL/min (90-130); Glucose 124 mg/dL (65-115); Osmolality Calculated 280 mOsm/kg (285-295); Sodium 135 mmol/L (136-145); Total Bilirubin 0.2 mg/dL (0.15-1.2); Total Protein 7.5 g/dL (6.6-8.7)
[2023-01-22 02:58] LABS: Aspartate Amino Transferase 32 U/L (0-32)
--- NOTE | 2023-01-22 03:07 | ECG_ITS ---
[facility] Test Date: 2023-01-22 Pat Name: Monik Garcia Department: Room: Gender: Female Network Liaison: : 1990 Requested By: Quentin Pace Order Number: [id number] Gupta MD: Jl Davis M.D. Measurements Intervals [place] Rate: 109 P: 56 CO: 181 QRS: 22 QRSD: 103 T: 54 QT: 339 QTc: 457 Interpretive Statements SINUS TACHYCARDIA NONSPECIFIC T-WAVE ABNORMALITY Compared to ECG 05/23/2018 21:21:55 T-wave abnormality now present Electronically Signed On 01-22-2023 9:46:19 CDT by Jl Davis M.D. [email or web address]
[2023-01-22 03:50] VITALS: BP 136/84; PULSE 111; RESP 14; O2SAT 98
--- NOTE | 2023-01-22 04:00 | PC.NURSE ---
Patient upto bathroom. States that her pain is getting worse again after sitting up. REquesting pain meds. Provider notified.
[2023-01-22 04:01] LABS: SARS Covid-2 Antigen negative (Negative)
[2023-01-22] MEDS: dexamethasone 10 mg/mL INJ IVP (04:05)
[2023-01-22 04:06] LABS: Add Urine Microscopic? NO; Charge for UA Resulting for Rev
[2023-01-22 04:08] LABS: Urine Appearance Clear (CLEAR); Urine Color Light yellow (Yellow); pH Urine 8 (5-7)
[2023-01-22 04:09] LABS: Bilirubin Urine Neg (Negative); Blood Urine Neg (Negative); Glucose Urine UA Norm (Normal); Ketones Urine Negative (Negative); Leukocyte Esterase Urine Negative (Negative); Nitrate Urine Negative (Negative); Protein Urine Neg (Negative); Sulfosalicylic Acid Urine Negative (Negative); Urobilinogen Urine Neg (Negative)
[2023-01-22] MEDS: acetaminophen 1,000 MG/100 ML PIGGYBACK 400 MG IV (04:11)
[2023-01-22 04:38] VITALS: BP 117/78; PULSE 112; RESP 14; O2SAT 97
[2023-01-22 05:19] VITALS: PULSE 111; RESP 16; O2SAT 98
== END 2023-01-22 05:32 | disposition home or self-care (01) ==
PROVIDERS: Emergency Provider Emergency Medicine; PCP Nurse Practitioner Family
DX: G43.909 Migraine, unspecified, not intractable, without status migrainosus (principal); Z79.84 Long term (current) use of oral hypoglycemic drugs; Z20.822 Contact with and (suspected) exposure to COVID-19; I10 Essential (primary) hypertension
CPT/HCPCS: 80053; 81003; 85025; 87426; 93005; 96365; 96375; 99284; J0131; J1100; J1200; J1885; J2765; J7030

== ENCOUNTER → 2023-08-15 15:35 | Outpatient (BNVA) | payer OTHER, SELFPAY | PROVIDERS: PCP Nurse Practitioner Family; Visit Provider Nurse Practitioner Women's Health | DX: N93.9 Abnormal uterine and vaginal bleeding, unspecified (principal); E28.2 Polycystic ovarian syndrome | CPT/HCPCS: 83036; 84439; 84443; 84702; 85025; 87491; 87591; 87624 ==

== ENCOUNTER → 2023-09-03 12:19 | Outpatient (BNVA) | payer OTHER, SELFPAY | PROVIDERS: PCP Nurse Practitioner Family; Visit Provider Nurse Practitioner Women's Health | DX: N93.9 Abnormal uterine and vaginal bleeding, unspecified (principal); N83.201 Unspecified ovarian cyst, right side | CPT/HCPCS: 76830 ==

== ENCOUNTER → 2023-09-17 14:13 | Outpatient (BNVA) | payer OTHER, SELFPAY | PROVIDERS: PCP Nurse Practitioner Family; Visit Provider Nurse Practitioner Women's Health | DX: N93.9 Abnormal uterine and vaginal bleeding, unspecified (principal) | CPT/HCPCS: 81025; 88305 ==

== ENCOUNTER → 2023-10-24 08:06 | Outpatient (BNVA) | payer OTHER, SELFPAY | PROVIDERS: PCP Nurse Practitioner Family; Visit Provider Nurse Practitioner Women's Health | DX: Z30.9 Encounter for contraceptive management, unspecified (principal) | CPT/HCPCS: 81025 ==

== ENCOUNTER 2024-03-13 10:10 | Outpatient (CLI) | payer OTHER, SELFPAY ==
--- NOTE | 2024-03-13 10:27 | XRR_ITS ---
PROCEDURE INFORMATION: Exam: XR Cervical Spine Exam date and time: 03/13/2024 10:45 AM Age: 33 years old Clinical indication: Neck pain; Patient HX: Lt periorbital edema x 2 months; Headaches x 3 weeks; RT neck/shoulder pain; Arm numbness/tingling TECHNIQUE: Imaging protocol: Radiologic exam of the cervical spine. Views: 4 or 5 views. COMPARISON: CR XR chest 1V [id number] 05/23/2018 9:31 PM FINDINGS: Bones/joints: Straightening of the cervical spine. Vertebral body and intervertebral disc heights are maintained. No acute fracture or dislocation. Facet joints are unremarkable. Neural foramina are intact. Soft tissues: No significant soft tissue pathology. XR/XR cervical spine 4-5V [id number] IMPRESSION: Negative except for straightening of the cervical spine.
== END 2024-03-13 10:11 | disposition home or self-care (01) ==
PROVIDERS: PCP Nurse Practitioner Family; Visit Provider Nurse Practitioner Family
DX: M54.2 Cervicalgia (principal)
CPT/HCPCS: 72050

== ENCOUNTER → 2024-09-03 11:57 | Outpatient (BNVA) | payer MEDICAID, SELFPAY | PROVIDERS: PCP Nurse Practitioner Family; Visit Provider Nurse Practitioner Women's Health | DX: N93.9 Abnormal uterine and vaginal bleeding, unspecified (principal); E28.2 Polycystic ovarian syndrome; R53.83 Other fatigue | CPT/HCPCS: 80053; 82306; 82728; 83036; 83525; 83540; 84146; 84403; 84439; 84443; 85025 ==